=== PATIENT | male | born 1960 | race Caucasian/White ===

== ENCOUNTER 2016-12-25 00:10 | Emergency (ER) | payer SELFPAY ==
[~2016-12-25] VITALS: Ht 177.8 cm; Wt 92.4 kg
[~2016-12-25 00:10] MED LIST: CIPRO500 MG PO; FLAGYL500 MG PO; PERCOCET 5/31 TABLET PO; ZOFRAN4 MG PO
[2016-12-25] MEDS ORDERED: CIPRO500 MG PO (01:51)
[2016-12-25 02:09] VITALS: BP 121/80
== END 2016-12-25 02:10 | disposition home or self-care (01) ==
LOC: EXP 00:10 → EME 00:10 → EXP 02:10
PROC: 3E0234Z Introduction of Serum, Toxoid and Vaccine into Muscle, Percutaneous Approach (ICD-10-PCS; principal; 2016-12-25)
DX: S91.331A Puncture wound without foreign body, right foot, initial encounter (principal); W26.8XXA Contact with other sharp object(s), not elsewhere classified, initial encounter; Z23 Encounter for immunization; Z87.891 Personal history of nicotine dependence
CPT/HCPCS: 73630; 99281; 99283